=== PATIENT | male | born 1975 | race Caucasian/White ===

== ENCOUNTER 2019-06-23 18:29 | Emergency (ER) | payer SELFPAY ==
[~2019-06-23] VITALS: Ht 170.2 cm; Wt 73.0 kg
[2019-06-23] MEDS ORDERED: IBUPROFEN 800MG TABLET PO ONE (20:30)
[2019-06-23] MEDS ORDERED: TETANUS, DIPHTHERIA, PERTUSSIS VAC/PF 0.5ML (>7YR OLD) IM ONE (20:30)
[2019-06-23 22:06] VITALS: BP 136/82
== END 2019-06-23 22:08 | disposition home or self-care (01) ==
LOC: ER 18:29
DX: M25.522 Pain in left elbow (principal); M25.562 Pain in left knee; R07.81 Pleurodynia; V13.4XXA Pedal cycle driver injured in collision with car, pick-up truck or van in traffic accident, initial encounter; Y93.55 Activity, bike riding; Y92.410 Unspecified street and highway as the place of occurrence of the external cause
CPT/HCPCS: 71100; 73070; 73560; 90471; 90715; 99283; A4565